=== PATIENT | male | born 2000 | race Caucasian/White ===

== ENCOUNTER 2022-01-03 15:49 | Inpatient (IN) | payer OTHER ==
[~2022-01-03] VITALS: Ht 182.9 cm; Wt 66.7 kg
[2022-01-03 17:56] LABS: BASOPHILS % (AUTO) 0.5 % (0.0-2.0); EOSINOPHILS % (AUTO) 2.9 % (1.0-6.0); HEMATOCRIT 52.2 % (41-53); HEMOGLOBIN 17.2 g/dL (13.5-17.5); LYMPHOCYTES # (AUTO) 1.8 K/uL (1.0-4.8); LYMPHOCYTES % (AUTO) 27.7 % (22.0-44.0); MEAN CORPUSCULAR HEMOGLOBIN 31.6 pg (26.0-34.0); MEAN CORPUSCULAR VOLUME 96 fL (80-100); MONOCYTES # (AUTO) 0.5 K/uL (0.1-1.0); MONOCYTES % (AUTO) 7.9 % (2.0-9.0); NEUTROPHILS # (AUTO) 3.9 K/uL (1.8-7.7); PLATELET COUNT (AUTO) 270 K/uL (150-450); RED BLOOD CELL COUNT(AUTO) 5.45 MIL/uL (4.50-5.90); RED CELL DISTRIBUTION WIDTH 13.7 % (11.5-14.5)
[2022-01-03] MEDS ORDERED: MAGNESIUM HYDROXIDE SUSPENSION 30 ML UDCUP PO PRN (18:00)
[2022-01-03] MEDS ORDERED: ONDANSETRON HCL 4 MG/2 ML VIAL IVP PRN (18:00)
[2022-01-03] MEDS ORDERED: ZOLPIDEM TARTRATE 5 MG TABLET PO PRN (18:00)
[2022-01-03] MEDS ORDERED: SODIUM CHLORIDE 0.9% 1,000 ML IV ONE (18:00)
[2022-01-03] MEDS ORDERED: LORazepam 2 MG/ML VIAL IVP PRN (18:00)
[2022-01-03] MEDS ORDERED: ACETAMINOPHEN 325 MG TABLET PO PRN (18:00)
[2022-01-03 18:16] LABS: ANION GAP 0 mmol/L (8-16); CALCIUM, TOTAL 9.3 mg/dL (8.8-10.5); CARBON DIOXIDE 32 mmol/L (22-29); CHLORIDE 102 mmol/L (98-107); CREATININE 1.03 mg/dL (0.60-1.30); GLUCOSE,RANDOM 83 mg/dL (70-110); SODIUM SERUM 134 mmol/L (136-145); UREA NITROGEN, BLOOD 9 mg/dL (7-18)
[2022-01-03 18:19] LABS: ALANINE AMINOTRANSFERASE 22 U/L (12-78); ALKALINE PHOSPHATASE 110 U/L (46-116); ASPARTATE AMINOTRANSFERASE 16 U/L (15-37); BILIRUBIN,TOTAL 0.2 mg/dL (0.1-1.0); GLOMERULAR FILTR. RATE CALC > 60 mL/min (>60); TOTAL PROTEIN, SERUM 8.1 g/dL (6.4-8.2)
[2022-01-03 19:52] LABS: COVID AG,FIA SOURCE NASAL SWAB
[2022-01-03 21:19] VITALS: BP 115/64
[2022-01-04 00:45] VITALS: BP 110/62
[2022-01-04 04:28] LABS: AMPHET/METH SCREEN,URINE POSITIVE (NEGATIVE); BARBITURATE SCREEN, URINE NEGATIVE (NEGATIVE); BENZODIAZEPINES SCREEN,URINE NEGATIVE (NEGATIVE); CANNABINOID SCREEN,URINE POSITIVE (NEGATIVE); COCAINE SCREEN,URINE NEGATIVE (NEGATIVE); METHADONE SCREEN, URINE NEGATIVE (NEGATIVE); OPIATE SCREEN,URINE NEGATIVE (NEGATIVE)
[2022-01-04 04:29] LABS: PHENCYCLIDINE SCREEN,URINE NEGATIVE (NEGATIVE)
[2022-01-04 04:45] VITALS: BP 102/51
[2022-01-04 07:44] VITALS: BP 103/68
[2022-01-04] MEDS: FAMOTIDINE 20 MG TABLET PO SCH (08:54)
[2022-01-04 11:53] VITALS: BP 101/54
[2022-01-04 16:05] VITALS: BP 115/59
[2022-01-04 19:21] VITALS: BP 120/45
[2022-01-05 00:05] VITALS: BP 117/60
[2022-01-05 04:48] VITALS: BP 115/59
[2022-01-05 07:31] VITALS: BP 122/66
[2022-01-05] MEDS: FAMOTIDINE 20 MG TABLET PO SCH (08:40)
[2022-01-05 11:10] VITALS: BP 115/60
[2022-01-05] MEDS ORDERED: ACET-2247 PO (15:11)
[2022-01-05 15:12] VITALS: BP 109/69
[2022-01-05] MEDS ORDERED: MAGN-169 PO (15:12)
== END 2022-01-05 17:20 | DRG 897 ==
LOC: EMS 15:51 → 5S 18:02
PROVIDERS: ADMIT Internal Medicine; ATTEND Internal Medicine
DX: F15.10 Other stimulant abuse, uncomplicated (principal); F41.9 Anxiety disorder, unspecified; Z20.822 Contact with and (suspected) exposure to COVID-19; Z87.891 Personal history of nicotine dependence
CPT/HCPCS: 80053; 85025; 99285; G0480; J7030